=== PATIENT | female | born 1940 | race Caucasian/White ===

== ENCOUNTER → 2018-01-23 | Outpatient (CLI) | payer MEDICARE, BC ==
[2018-01-23 11:52] LABS: CALCIUM 9.2 mg/dL (8.5-10.1); CREATININE 0.7 mg/dL (0.6-1.3); POTASSIUM 4.3 mmol/L (3.5-5.1)
== END ==
LOC: M.LAB 11:17
DX: E87.1 Hypo-osmolality and hyponatremia (principal)

== ENCOUNTER 2018-05-05 13:32 | Inpatient (IN) | payer MEDICARE, BC ==
[~2018-05-05] VITALS: Ht 162.6 cm; Wt 75.7 kg
[2018-05-05 13:36] VITALS: BP 157/29
[2018-05-05] MEDS ORDERED: LISINOPRIL40 MG PO (13:59)
[2018-05-05] MEDS ORDERED: NORVASC10 MG PO (14:00)
[2018-05-05] MEDS ORDERED: ZETIA10 MG PO (14:00)
[2018-05-05] MEDS ORDERED: XANAX 0.25 MG0.25 MG PO (14:00)
[2018-05-05] MEDS ORDERED: REGLAN 10 MG TA10 MG PO (14:00)
[2018-05-05] MEDS ORDERED: SPIRONOLACTONE25 M1 PO (14:01)
[2018-05-05] MEDS ORDERED: CILOSTAZOL 100100 M1 PO (14:01)
[2018-05-05] MEDS ORDERED: METOPROLOL SUCC50 MG PO (14:02)
[2018-05-05 14:06] LABS: URINE BLOOD TRACE (Negative); URINE CLARITY SL CLOUDY; URINE COLOR YELLOW; URINE GLUCOSE-RANDOM 1+ (Negative); URINE KETONES TRACE (Negative); URINE LEUKOCYTES-REFLEX 1+ (Negative); URINE NITRITE-REFLEX NEGATIVE (Negative); URINE PROTEIN 1+ (Negative); URINE UROBILINOGEN 0.2 E.U./dl (0.2-1.0)
[2018-05-05 14:11] LABS: ICTOTEST (BILI CONFIRMATORY) Negative (Negative); URINE BILIRUBIN 1+ (Negative)
[2018-05-05 14:13] LABS: HEMATOCRIT 34.4 % (37.0-47.0); HEMOGLOBIN 11.6 gm/dL (12.0-15.0); MCH 31.1 pg (26.0-34.0); MCHC 33.8 g/dL (28.0-37.0); MCV 92.1 fL (80.0-100.0); MPV 10.8 fl. (7.2-11.1); NUCLEATED RBCS 0 /100WBC; PLATELET COUNT* 224 thou/uL (150-400); RBC 3.74 mil/uL (4.20-5.00); RDW-CV 12.6 % (10.5-14.5); WBC 15.6 thou/uL (4.0-11.0)
[2018-05-05 14:21] LABS: CALCIUM 8.5 mg/dL (8.5-10.1); CREATININE 1.1 mg/dL (0.6-1.3); POTASSIUM 4.1 mmol/L (3.5-5.1)
[2018-05-05 14:25] LABS: TOTAL BILIRUBIN 0.5 mg/dL (<0.1-1.0); TOTAL PROTEIN 6.7 g/dL (6.4-8.2)
[2018-05-05 14:29] LABS: SQUAMOUS >10 Many /LPF (0-3)
[2018-05-05 14:30] LABS: URINE WBC-REFLEX >25 Many /HPF (0-5)
[2018-05-05 14:31] LABS: BACTERIA-REFLEX >30 Many /HPF (None Seen); CRYSTALS None Seen /LPF (None Seen); HYALINE CASTS 0-3 Few /LPF (None Seen); MUCUS >6 Heavy strn/LPF (None Seen); URINE RBC 0-2 Rare /HPF (0-2); WBC CLUMPS Few (None Seen)
[2018-05-05 14:52] LABS: ABSOLUTE MONOCYTES 1.4 thou/uL (0.0-1.2); ABSOLUTE NEUTROPHILS 14.2 thou/uL (1.6-8.1); PLATELET ESTIMATE ADEQUATE
[2018-05-05 15:47] VITALS: BP 125/44
[2018-05-05 17:46] VITALS: BP 155/57
[2018-05-05 21:08] VITALS: BP 129/52
[2018-05-06 08:15] VITALS: BP 146/60
[2018-05-06 12:02] LABS: HEMATOCRIT 34.3 % (37.0-47.0); HEMOGLOBIN 11.4 gm/dL (12.0-15.0); MCH 31.1 pg (26.0-34.0); MCHC 33.2 g/dL (28.0-37.0); MCV 93.6 fL (80.0-100.0); MPV 10.9 fl. (7.2-11.1); NUCLEATED RBCS 0 /100WBC; PLATELET COUNT* 227 thou/uL (150-400); RBC 3.66 mil/uL (4.20-5.00); WBC 12.4 thou/uL (4.0-11.0)
[2018-05-06 12:21] LABS: ALBUMIN 2.6 g/dL (3.4-5.0); ALKALINE PHOSPHATASE 152 U/L (46-116); ANION GAP 7 mmol/L (7-16); BUN 16 mg/dL (7-18); CALCIUM 8.3 mg/dL (8.5-10.1); CHLORIDE 95 mmol/L (98-107); CHOLESTEROL 146 mg/dL (<200); CO2 25 mmol/L (21-32); CREATININE 1.1 mg/dL (0.6-1.3); GLUCOSE 414 mg/dL (70-99); HDL CHOLESTEROL 25 mg/dL (>40); LDL CHOLESTEROL 90 mg/dL (<100); POTASSIUM 4.1 mmol/L (3.5-5.1); SERUM ASSESSMENT Clear; SGOT 25 U/L (15-37); SGPT 32 U/L (30-65); SODIUM 127 mmol/L (136-145); TC:HDL 5.8 Ratio (Not establshd); TOTAL BILIRUBIN 0.3 mg/dL (<0.1-1.0); TOTAL PROTEIN 6.5 g/dL (6.4-8.2); TRIGLYCERIDE 159 mg/dL (<150); VLDL 32 mg/dL (<40)
[2018-05-06 12:30] LABS: ABSOLUTE LYMPHOCYTES 0.6 thou/uL (0.8-5.3); ABSOLUTE MONOCYTES 0.5 thou/uL (0.0-1.2); ABSOLUTE NEUTROPHILS 11.3 thou/uL (1.6-8.1); METAMYELOCYTES 1 %; PLATELET ESTIMATE ADEQUATE
[2018-05-06 16:50] VITALS: BP 129/51
[2018-05-06 19:40] VITALS: BP 137/51
[2018-05-06 23:05] LABS: GLYCOHEMOGLOBIN (HGB A1C) 6.8 % (4.8-5.6)
[2018-05-07 08:00] VITALS: BP 152/63
[2018-05-07 11:32] LABS: HEMATOCRIT 31.9 % (37.0-47.0); HEMOGLOBIN 10.6 gm/dL (12.0-15.0); MCH 31.2 pg (26.0-34.0); MCHC 33.3 g/dL (28.0-37.0); MCV 93.7 fL (80.0-100.0); MPV 11.2 fl. (7.2-11.1); NUCLEATED RBCS 0 /100WBC; PLATELET COUNT* 215 thou/uL (150-400); RDW-CV 13.1 % (10.5-14.5); WBC 10.6 thou/uL (4.0-11.0)
[2018-05-07 11:48] LABS: CALCIUM 8.6 mg/dL (8.5-10.1); CREATININE 1.1 mg/dL (0.6-1.3); POTASSIUM 4.2 mmol/L (3.5-5.1)
[2018-05-07 12:13] LABS: ABSOLUTE LYMPHOCYTES 1.1 thou/uL (0.8-5.3); ABSOLUTE MONOCYTES 0.4 thou/uL (0.0-1.2); ABSOLUTE NEUTROPHILS 9.1 thou/uL (1.6-8.1); ANISOCYTOSIS 1+; PLATELET ESTIMATE ADEQUATE; POIKILOCYTOSIS 1+
[2018-05-07 13:37] VITALS: BP 152/63
[2018-05-07 14:35] VITALS: BP 152/63
[2018-05-07 15:07] VITALS: BP 152/63
== END 2018-05-07 15:07 | disposition home or self-care (01) | DRG 872 ==
LOC: M.ERS 13:32 → M.ORTHSURG 14:40 → M.TBA-ER 14:40 → M.ORTHSURG 15:58
PROVIDERS: Emergency Medicine; ADMIT Internal Medicine
DX: A41.9 Sepsis, unspecified organism (principal); N30.00 Acute cystitis without hematuria; J96.11 Chronic respiratory failure with hypoxia; N12 Tubulo-interstitial nephritis, not specified as acute or chronic; I10 Essential (primary) hypertension; F17.210 Nicotine dependence, cigarettes, uncomplicated; E78.5 Hyperlipidemia, unspecified; E11.51 Type 2 diabetes mellitus with diabetic peripheral angiopathy without gangrene; Z88.2 Allergy status to sulfonamides; Z79.899 Other long term (current) drug therapy

== ENCOUNTER 2018-09-28 18:13 | Emergency (ER) | payer MEDICARE, BC ==
[~2018-09-28] VITALS: Ht 162.6 cm; Wt 79.8 kg
[~2018-09-28 18:13] MED LIST: CILOSTAZOL 100100 M1 PO; LISINOPRIL40 MG PO; METOPROLOL SUCC50 MG PO; NORVASC10 MG PO; REGLAN 10 MG TA10 MG PO; SPIRONOLACTONE25 M1 PO; XANAX 0.25 MG0.25 MG PO; ZETIA10 MG PO
[2018-09-28 19:49] LABS: URINE BILIRUBIN NEGATIVE (Negative); URINE BLOOD NEGATIVE (Negative); URINE CLARITY CLEAR; URINE COLOR YELLOW; URINE GLUCOSE-RANDOM NEGATIVE (Negative); URINE KETONES NEGATIVE (Negative); URINE LEUKOCYTES-REFLEX TRACE (Negative); URINE PROTEIN NEGATIVE (Negative); URINE UROBILINOGEN 0.2 E.U./dl (0.2-1.0)
[2018-09-28 19:51] LABS: URINE NITRITE-REFLEX POSITIVE (Negative)
[2018-09-28 19:56] LABS: MCH 30.9 pg (26.0-34.0); NUCLEATED RBCS 0 /100WBC
[2018-09-28 19:59] LABS: ABSOLUTE EOSINOPHILS 0.1 thou/uL (0.0-0.7); ABSOLUTE MONOCYTES 0.6 thou/uL (0.0-1.2); ABSOLUTE NEUTROPHILS 3.1 thou/uL (1.6-8.1); BASOPHILS 0.4 %; EOSINOPHILS 1.8 %; HEMATOCRIT 37.5 % (37.0-47.0); HEMOGLOBIN 12.8 gm/dL (12.0-15.0); LYMPHOCYTES 34.7 %; MCHC 34.2 g/dL (28.0-37.0); MCV 90.3 fL (80.0-100.0); MONOCYTES 9.7 %; MPV 10.2 fl. (7.2-11.1); PLATELET COUNT* 274 thou/uL (150-400); POLYS 53.4 %; RBC 4.15 mil/uL (4.20-5.00); RDW-CV 13.5 % (10.5-14.5); WBC 5.8 thou/uL (4.0-11.0)
[2018-09-28 19:59] LABS: BACTERIA-REFLEX >30 Many /HPF (None Seen); CASTS None Seen /LPF (None Seen); CRYSTALS None Seen /LPF (None Seen); SQUAMOUS NONE SEEN /LPF (0-3); URINE RBC None Seen /HPF (0-2); URINE WBC-REFLEX 0-5 Rare /HPF (0-5)
[2018-09-28 20:05] LABS: CALCIUM 8.8 mg/dL (8.5-10.1); CREATININE 0.7 mg/dL (0.6-1.3); POTASSIUM 3.8 mmol/L (3.5-5.1)
[2018-09-28 20:10] LABS: ALBUMIN 3.7 g/dL (3.4-5.0); TOTAL BILIRUBIN 0.3 mg/dL (<0.1-1.0)
[2018-09-28] MEDS ORDERED: CEFUROXIME500 MG PO (20:25)
[2018-09-28 20:40] VITALS: BP 156/54
--- NOTE | 2018-10-01 13:38 | EKG ---
[place] [address] ELECTROCARDIOGRAM REPORT Name: AMIE SUN [id number] Admission: 09/28/18 Attend Phys: Discharge: 09/28/18 Date of : 40 Report #: [id number] THIS REPORT FOR: //name// [facility] ED Test Date: 2018-09-28 Test Time: 18:18:48 Pat Name: AMIE SUN Department: Room: Gender: F [employer]: DA : 1940 Requested By: Nicki Nicole Order Number: [id number] MD: Real Espinal Measurements Intervals [place] Rate: 110 P: 80 [place]: 165 QRS: 49 QRSD: 85 T: 8 QT: 324 QTc: 439 Interpretive Statements Sinus tachycardia Atrial premature complex Probable anteroseptal infarct, old No previous ECG available for comparison Electronically Signed On 10-01-2018 13:38:27 CDT by Real Espinal [email or web address] <ELECTRONICALLY SIGNED> By: Real Espinal MD, [facility] 10/01/18 1338 1818 17 Real Espinal MD, FACC /EPI
== END 2018-09-28 20:41 | disposition home or self-care (01) ==
LOC: M.ERS 18:13
PROVIDERS: Emergency Medicine
DX: I16.0 Hypertensive urgency (principal); N39.0 Urinary tract infection, site not specified; E11.9 Type 2 diabetes mellitus without complications; Z88.2 Allergy status to sulfonamides